=== PATIENT | female | born 1960 | race Caucasian/White ===

== ENCOUNTER → 2025-03-18 | Outpatient (CLI) | payer MEDICARE, OTHER, SELFPAY ==
[2025-03-18 09:08] LABS: Vitamin B12 476 pg/mL (211-911); Vitamin D 25 Hydroxy Total 57.1 ng/mL (7.3-40.2)
[2025-03-18 09:42] LABS: Alanine Aminotransferase 77 U/L (10-49); Alkaline Phosphatase 166 U/L (46-116); Anion Gap 12 (7-16); Aspartate Amino Transferase 99 U/L (0-34); BUN/Creatinine Ratio 17 Ratio (12-20); Bilirubin,Total 0.6 mg/dL (0.3-1.2); Blood Urea Nitrogen 10 mg/dL (9-23); Calcium 9.8 mg/dL (8.3-10.6); Carbon Dioxide 28.8 mMol/L (20.0-31.0); Cardiac Risk Estimate 4.8 RATIO (3.7-5.6); Chloride 107 mMol/L (98-107); Cholesterol 181 mg/dL (132-200); Creatinine (Component) 0.6 mg/dL (0.6-1.3); Glucose 116 mg/dL (74-106); HDL Cholesterol 38 mg/dL (40-60); LDL Cholesterol,Calculated 120 mg/dL (0-130); Osmolality,Calculated 294 (275-295); Potassium 4.2 mMol/L (3.4-5.1); Sodium 148 mMol/L (136-145); Total Protein 7.7 gm/dL (5.7-8.2); Triglycerides 116 mg/dL (30-150); Uric Acid 6.2 mg/dL (3.1-7.8); eGFR > 60 See Note
[2025-03-18 10:00] LABS: Albumin, Serum 4.5 gm/dL (3.4-4.8); Albumin/Globulin Ratio 1.4 (1.2-2.2); Calcium (Corrected) 9.8 mg/dL (8.5-10.1); Globulin 3.2 gm/dL (2.3-3.5)
== END | disposition home or self-care (01) ==
PROVIDERS: PCP Internal Medicine; Referring Provider Internal Medicine; Visit Provider Internal Medicine
DX: I10 Essential (primary) hypertension (principal); E78.5 Hyperlipidemia, unspecified
CPT/HCPCS: 36415; 80053; 80061; 82306; 82607; 84550

== ENCOUNTER → 2025-04-17 | Outpatient (CLI) | payer MEDICARE, OTHER, SELFPAY ==
--- NOTE | 2025-04-17 13:30 | XR_ITS ---
Examination: Abdomen sonogram, Limited Date and time of exam: April 17, 2025, 1313 hours INDICATIONS: Elevated liver function tests on laboratory examination March 18, 2025 Technique: Real-time mehta scale transabdominal sonographic images of the upper abdomen obtained. Findings: Absent gallbladder Common bile duct 0.3 cm Pancreatic head 2.1 cm Liver 15.4 cm fatty infiltration irregular contour no focal liver lesions Normal hepatopetal portal venous flow Patent IVC IMPRESSION: Normal common bile duct Suspect primary hepatocellular disease
--- NOTE | 2025-04-17 14:00 | XR_ITS ---
Examination: Screening digital mammography, bilateral Computer aided detection 3-D breast Tomosynthesis, bilateral Date and time of exam: April 17, 2025, 1256 hours Indication: Screening Technique: Nonmagnified MLO, CC views of the breasts to been obtained, reconstructed from 3-D Tomosynthesis images. R2 computer aided detection program utilized for evaluation of suspicious masses and/or abnormal calcifications. 3-D Tomosynthesis images obtained. Findings: Scattered areas of fibroglandular density. Benign calcifications. No interval suspicious masses Impression: BI-RADS category II: Benign Findings. Recommend 1 year follow-up mammogram.
--- NOTE | 2025-04-17 14:20 | XR_ITS ---
Examination: Bone densitometry Date and time of exam: April 17, 2025, 1400 hours INDICATIONS: Menopause age 44, family history, mother, hip fracture, personal history wrist fracture Technique: Lumbar spine and hip total bone mineralization values of an calculated. Peak reference and age match control results have been displayed. Findings: Lumbar spine total bone mineralization is 0.772 gm/cm2. This is 2.5 standard deviations below peak reference. This is 0.7 standard deviations below age-matched controls. Hip total bone mineralization is 0.759 gm/cm2 This is 1.5 standard deviations below peak reference. This is 0.2 standard deviations below age-matched controls Impression: There is osteoporosis based on lumbar spine measurements. There is osteoporosis based on hip measurements
== END | disposition home or self-care (01) ==
PROVIDERS: PCP Internal Medicine; Referring Provider Internal Medicine; Visit Provider Internal Medicine
DX: Z13.21 Encounter for screening for nutritional disorder (principal); R92.323 Mammographic fibroglandular density, bilateral breasts; R92.1 Mammographic calcification found on diagnostic imaging of breast; M81.0 Age-related osteoporosis without current pathological fracture; K76.89 Other specified diseases of liver
CPT/HCPCS: 76705; 77063; 77067; 77080